=== PATIENT | female | born 1970 ===

== ENCOUNTER 2020-06-21 14:58 | Emergency (ER) | payer SELFPAY ==
[~2020-06-21] VITALS: Ht 167.6 cm; Wt 57.0 kg
[2020-06-21] MEDS ORDERED: ketorolac tromethamine 15mg/ml inj. IM ONE (15:35)
[2020-06-21] MEDS ORDERED: METH-360 PO (15:36)
[2020-06-21 15:54] VITALS: BP 126/88
== END 2020-06-21 15:56 | disposition home or self-care (01) ==
LOC: ER 14:59
DX: M54.9 Dorsalgia, unspecified (principal)
CPT/HCPCS: 96374; 99283; J1885